=== PATIENT | female | born 1985 | race Two or more races ===

== ENCOUNTER 2020-11-09 10:43 | Inpatient (IN) | payer MEDICAID, OTHER ==
[~2020-11-09] VITALS: Ht 160 cm; Wt 84.5 kg
[~2020-11-09 10:43] MED LIST: BUPROPRION PO; CLON-364 PO; COLLAGEN PO; COQ 10 PO; DOXYCYCLINE PO; FENU500C PO; MACA PO; MOTRIN PO; SERT100T32 PO; VITAMIN D PO; ZOLPIDEM PO; [UNRECOGNIZED DRUG - OTHER] PO; [UNRECOGNIZED DRUG - OTHER] PO; [UNRECOGNIZED DRUG - OTHER] PO
[2020-11-09] MEDS ORDERED: FENTANYL PF 100 MCG/2ML IV PRN (19:00)
[2020-11-09] MEDS ORDERED: ONDANSETRON 2MG/ML, 2ML IVPush PRN (19:00)
[2020-11-09] MEDS ORDERED: CALCIUM CARBONATE 500 MG TAB.CHEW PO PRN (19:00)
[2020-11-09] MEDS ORDERED: FENTANYL PF 100 MCG/2ML IVPush PRN (19:00)
[2020-11-09] MEDS: D5%-LACTATED RINGERS 1,000 ML IV SCH (19:00)
[2020-11-09] MEDS ORDERED: OXYTOCIN 30U/ 0.9% NaCL 500ML 500 ML IV ONE (19:00)
[2020-11-09] MEDS ORDERED: TERBUTALINE 1 MG/ML, 1ML IVPush PRN (19:00)
[2020-11-09] MEDS ORDERED: TERBUTALINE 1 MG/ML, 1ML SQ PRN (19:00)
[2020-11-09 19:02] LABS: BASOPHILS % (AUTO) 0 % (0-1); EOSINOPHILS % (AUTO) 2 % (1-7); LYMPHOCYTES % (AUTO) 18 % (22-44); MEAN CORPUSCULAR HEMOGLOBIN 24.8 pg (27.0-34.8); MEAN CORPUSCULAR HGB CONC 32.4 g/dL (32.4-35.8); MEAN PLATELET VOLUME 9.1 fL (7.4-10.4); MONOCYTES % (AUTO) 7 % (2-9); NEUTROPHILS % (AUTO) 73 % (42-75); PLATELET COUNT 189 x10^3/uL (130-400); RED BLOOD COUNT 4.53 x10^6/uL (3.82-5.3); RED CELL DISTRIBUTION WIDTH 17.8 % (9.6-15.2)
[2020-11-09] MEDS: LACTATED RINGERS 1,000 ML IV SCH (19:06)
[2020-11-09 19:47] LABS: ALBUMIN 2.6 g/dL (3.4-5.0); ANION GAP 9 mmol/L (5-15); CALCIUM 8.4 mg/dL (8.5-10.1); CHLORIDE 106 mmol/L (98-107)
[2020-11-09 19:50] LABS: ALANINE AMINOTRANSFERASE 14 U/L (12-78); ALKALINE PHOSPHATASE 138 U/L (45-117); BILIRUBIN, DIRECT 0.1 mg/dL (0.1-0.2); BILIRUBIN,TOTAL 0.4 mg/dL (0.2-1.0); CREATININE 0.51 mg/dL (0.55-1.02); TOTAL PROTEIN 6.8 g/dL (6.4-8.2)
[2020-11-09] MEDS ORDERED: MISOPROSTOL 200 MCG TABLET ONE (20:04)
[2020-11-09] MEDS ORDERED: LIDOCAINE 1%, 20ML ONE (20:04)
[2020-11-09] MEDS ORDERED: OXYTOCIN 30U/ 0.9% NaCL 500ML 500 ML IV PRN (20:30)
[2020-11-09] MEDS: MISOPROSTOL 25 MCG TABLET VG PRN (20:35)
[2020-11-09 23:15] LABS: MICROSCOPIC INDICATED
[2020-11-10] MEDS: D5%-LACTATED RINGERS 1,000 ML IV SCH ×2 (03:00→11:00)
[2020-11-10] MEDS: MISOPROSTOL 25 MCG TABLET VG PRN (06:40)
[2020-11-10] MEDS: LACTATED RINGERS 1,000 ML IV SCH ×2 (09:14→13:17)
[2020-11-10 09:33] VITALS: BP 108/62
[2020-11-10] MEDS: LACTATED RINGERS 1,000 ML IVBOLUS PRN ×2 (09:45→10:43)
[2020-11-10] MEDS ORDERED: FENTANYL/BUPIV./NS/PF 250 ML EPIDCONT ONE (10:40)
[2020-11-10] MEDS ORDERED: NALOXONE 0.4 MG/ML, 1ML IVPush PRN (11:30)
[2020-11-10] MEDS ORDERED: LACTATED RINGERS 1,000 ML IV SCH (11:30)
[2020-11-10] MEDS ORDERED: EPHEDRINE 50 MG/ML, 1ML IVPush PRN (11:30)
[2020-11-10] MEDS ORDERED: FENTANYL/BUPIV./NS/PF 250 ML EPIDCONT SCH (11:30)
[2020-11-10] MEDS: OXYTOCIN 30U/ 0.9% NaCL 500ML 500 ML IV SCH ×3 (16:03→17:25)
[2020-11-10] MEDS ORDERED: SIMETHICONE 80 MG CHEW TAB PO PRN (16:30)
[2020-11-10] MEDS ORDERED: MISOPROSTOL 200 MCG TABLET PR PRN (16:30)
[2020-11-10] MEDS ORDERED: HYDROcodone/APAP 5/325 TABLET PO PRN (16:30)
[2020-11-10] MEDS ORDERED: DOCUSATE 100 MG CAPSULE PO PRN (16:30)
[2020-11-10] MEDS ORDERED: ACETAMINOPHEN 325 MG TABLET PO PRN (16:30)
[2020-11-10] MEDS: IBUPROFEN 600 MG TABLET PO PRN (17:42)
[2020-11-10] MEDS: HYDROcodone/APAP 5/325 TABLET PO PRN (17:43)
[2020-11-10 18:18] VITALS: BP 113/72
[2020-11-10 19:55] VITALS: BP 116/67
[2020-11-11 01:03] VITALS: BP 104/65
[2020-11-11 04:45] VITALS: BP 96/55
[2020-11-11 06:15] LABS: BASOPHILS % (AUTO) 0 % (0-1); EOSINOPHILS % (AUTO) 2 % (1-7); LYMPHOCYTES % (AUTO) 13 % (22-44); MEAN CORPUSCULAR HEMOGLOBIN 25.3 pg (27.0-34.8); MEAN CORPUSCULAR HGB CONC 33.3 g/dL (32.4-35.8); MEAN PLATELET VOLUME 9.2 fL (7.4-10.4); MONOCYTES % (AUTO) 7 % (2-9); NEUTROPHILS % (AUTO) 78 % (42-75); PLATELET COUNT 150 x10^3/uL (130-400); RED BLOOD COUNT 3.78 x10^6/uL (3.82-5.3); RED CELL DISTRIBUTION WIDTH 17.9 % (9.6-15.2)
[2020-11-11 07:20] VITALS: BP 105/66
[2020-11-11] MEDS: IBUPROFEN 600 MG TABLET PO PRN (09:10)
[2020-11-11] MEDS: PRENATAL VIT/IRON/FA 1 EACH TABLET PO SCH (09:10)
[2020-11-11] MEDS: HYDROcodone/APAP 5/325 TABLET PO PRN (09:10)
[2020-11-11 11:50] VITALS: BP 124/81
[2020-11-11 16:15] VITALS: BP 110/71
[2020-11-11 19:39] VITALS: BP 123/78
[2020-11-11] MEDS: OXYTOCIN 30U/ 0.9% NaCL 500ML 500 ML IV SCH (22:30)
[2020-11-12 06:48] VITALS: BP 114/68
[2020-11-12] MEDS: OXYTOCIN 30U/ 0.9% NaCL 500ML 500 ML IV SCH (08:30)
[2020-11-12] MEDS: PRENATAL VIT/IRON/FA 1 EACH TABLET PO SCH (09:00)
[2020-11-12] MEDS ORDERED: HYDR-2214 PO (10:18)
[2020-11-12] MEDS ORDERED: IBUP-1222 PO (10:19)
== END 2020-11-12 16:20 | disposition home or self-care (01) | DRG 806 ==
LOC: LDIP 18:12 → 2NW 11-10 18:17
PROVIDERS: ADMIT Obstetrics & Gynecology Female Pelvic Medicine and Reconstructive Surgery; ATTEND Obstetrics & Gynecology Female Pelvic Medicine and Reconstructive Surgery
PROC: 10E0XZZ Delivery of Products of Conception, External Approach (ICD-10-PCS; principal; 2020-11-10)
PROC: 0KQM0ZZ Repair Perineum Muscle, Open Approach (ICD-10-PCS; 2020-11-10)
PROC: 10907ZC Drainage of Amniotic Fluid, Therapeutic from Products of Conception, Via Natural or Artificial Opening (ICD-10-PCS; 2020-11-10)
PROC: 3E0P7VZ Introduction of Hormone into Female Reproductive, Via Natural or Artificial Opening (ICD-10-PCS; 2020-11-10)
DX: O14.94 Unspecified pre-eclampsia, complicating childbirth (principal); O99.354 Diseases of the nervous system complicating childbirth; Z37.0 Single live birth; O99.344 Other mental disorders complicating childbirth; F32.9 Major depressive disorder, single episode, unspecified; F41.9 Anxiety disorder, unspecified; G43.909 Migraine, unspecified, not intractable, without status migrainosus; Z20.822 Contact with and (suspected) exposure to COVID-19; Z3A.37 37 weeks gestation of pregnancy; Z90.49 Acquired absence of other specified parts of digestive tract; O70.1 Second degree perineal laceration during delivery
CPT/HCPCS: 36415; 80053; 81001; 82248; 82570; 84156; 84550; 85025; 86592; 86850; 86900; 87635; G0378; J2590; J7120